=== PATIENT | male | born 1975 ===

== ENCOUNTER 2020-05-30 09:04 | Outpatient (CLI) | payer BC, SELFPAY ==
--- NOTE | 2020-06-06 17:06 | SLEEP_ITS ---
Home Sleep Test DATE OF STUDY: 05/30/2020 ORDERING PHYSICIAN: Eduardo Posadas M.D. REASON FOR THE STUDY: Obstructive sleep apnea syndrome. HISTORY: This patient is a 45-year-old man, 6 feet tall, 276 pounds with a body mass index of 37.4. He has a history of sleep apnea, which was severe with an apnea-hypopnea index of 47 and a minimum saturation of 75% and an optimal CPAP pressure of 12 cm on study, 07/07/2013. He does snore. He snores, if he does not use his CPAP. While he is wearing it, he does not awaken at night. He occasionally has trouble sleeping with a cold, occasionally gasps for breath at night, constantly has breathing problems at night observed by others if he is not using CPAP. He occasionally sweats excessively at night. He rarely notices heart pounding or beating irregularly at night. He does not fall asleep in the day, does not fall asleep involuntarily or while driving. He does not have loss of muscle tone with strong emotion. He does not have daytime difficulty due to excessive sleepiness while using CPAP. He does not have the feeling of paralysis on waking or falling asleep and does not have vivid dreamlike scenes upon awakening or falling asleep. He is not afraid to go to sleep. He rarely has nightmares. He frequently remembers his dreams. He occasionally has racing thoughts, rarely feels sad or depressed. He occasionally has anxiety. He occasionally has muscular tension. He rarely notices parts of his body jerking. He occasionally kicks at night. He rarely has crawly achy feelings in his legs, rarely has leg pain at night and rarely has morning jaw pain. He occasionally grinds his teeth at night. He rarely is bothered by pain during the day and rarely is awakened by pain at night. He occasionally wakes up feeling stiff in the morning with sore achy muscles. He occasionally wakes up with pain in his neck and spine. He has bowel disturbances. Normal bedtime is between 11:00 p.m. and 01:00 a.m., falling asleep quickly while wearing CPAP. If he does awaken at night, it is in the middle of the night. He will roll over and go back to sleep. He does work different shifts, day shift as well as midnights. He awakes in the morning at 4:00 a.m., if he is working dayshift. He does not take naps. Most of the time, he feels good in the morning. Sometimes, he is drowsy for 3 hours after waking. Generally, he feels better in the afternoon than other times of day. MEDICAL COMORBIDITIES: Hypertension, atrial fibrillation, obstructive sleep apnea syndrome, esophageal stricture. MEDICATIONS: 1. Norvasc 10 mg a day. 2. Metoprolol 100 mg a day. HABITS: Never smoked tobacco. Little caffeine. Alcohol 12 per week. No recreational drugs. DESCRIPTION OF THE STUDY: On the [place] Sleepiness Scale, his score is 1. This test is a portable unattended home sleep test with 4 channel monitoring including respiratory effort channel, snoring channel, oxygen saturation channel, and heart rate channel. This study was scored using [facility] guidelines. The duration of the study 6 hours 19 minutes. The apnea-hypopnea index is 40. Oxygen desaturation index is 41. Lowest desaturation 78%. He had 12 apneas. He had 1 unclassified apnea, 8% of the apneas, 6 obstructive apneas, 50% of the apneas, 5 central apneas, 42% of the total. He had 242 hypopneas, 3714 snoring events and 261 desaturations spending 12 minutes below 88% saturation, which was 3% of the study. Minimum pulse was 60, maximum pulse was elevated at 125. IMPRESSION: 1. This home sleep test shows evidence of severe obstructive sleep apnea syndrome G47.33 with an apnea-hypopnea index of 40, minimum desaturation of 78% and frequent loud snoring. He spent 12 minutes below 88% saturation. This
== END 2020-05-30 09:05 | disposition home or self-care (01) ==
LOC: ANHCSM 09:34
PROVIDERS: Visit Provider Family Medicine
DX: G47.33 Obstructive sleep apnea (adult) (pediatric) (principal); Z68.37 Body mass index [BMI] 37.0-37.9, adult; I10 Essential (primary) hypertension; I48.91 Unspecified atrial fibrillation; K22.2 Esophageal obstruction
CPT/HCPCS: 95806